=== PATIENT | female | born 1970 | race Caucasian/White ===

== ENCOUNTER → 2018-05-13 14:02 | Outpatient (CLI) | payer OTHER, SELFPAY ==
[2018-05-11 15:35] VITALS: BMI 19.6
--- NOTE | 2018-05-13 14:05 | BI_ITS ---
MAMMOGRAPHY - BILATERAL SCREENING REASON FOR EXAM: Female, 47 years old. Routine annual screening examination. PERTINENT HISTORY: Grandmother with breast cancer. TECHNIQUE: Digital bilateral breast josh (3D mammographic acquisition) in the CC and MLO projections. 2-D mediolateral oblique (MLO) and craniocaudad (CC) views of both breasts were obtained. CAD: Full Field Digital Mammography with Computer Added Detection was performed. COMPARISON: Comparison is made with prior outside examination dated June 12, 2016. FINDINGS: Breast Composition: The breasts are heterogeneously dense, which may obscure small masses. There are no dominant masses or suspicious calcifications. No other significant abnormalities are identified. There has been no significant change since the prior study. BI/SCREENING MAMM (CAD), BILAT IMPRESSION: Stable bilateral screening mammogram. Yearly follow-up mammogram recommended. (A) ASSESSMENT CATEGORY: BIRADS Category 1: Negative. A letter regarding these results will be sent to the patient by the facility within 30 days. Approximately 10% of breast cancers are not detected by mammography. A normal mammogram should not delay biopsy of a clinically suspicious abnormality. [id number] Electronically Signed: Gilbert Chang MD at 8:17 EST Tel [phone], Service support ,
--- OUTSIDE RECORDS SUMMARY | 2018-06-29 10:49 | XMS RPT_ITS ---
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, left knee DR Michelle / M2242(ICD-10) Hospital Repository 01/08/2018 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, left knee DR Michelle / M2242(ICD-10) Hospital Repository PROCEDURES PROCEDURES No Procedure Records FoundRESULTS RESULTS SCREENING MAMM (CAD), Observed: 05/13/2018 Status: F Source: DRE BILAT 2:05 PM [facility] REPOSITORY [facility] Imaging Services [address] [place] [address] SCREENING MAMM (CAD), BILAT MR#: [id number] Acct: [id number] Name: RUPINDER CLARKE Rep #: [id number] : 1970 F 47 From: Gilbert Chang MD PCP: Care Physician, No Primary Status: REG CLI Study: SCREENING MAMM (CAD), BILAT Date of Exam: 05/13/18 Exam# [id number] Ordering Dr: Morenita Tyler MD MAMMOGRAPHY - BILATERAL SCREENING REASON FOR EXAM: Female, 47 years old. Routine annual screening examination. PERTINENT HISTORY: Grandmother with breast cancer. TECHNIQUE: Digital bilateral breast josh (3D mammographic acquisition) in the CC and MLO projections. 2-D mediolateral oblique (MLO) and craniocaudad (CC) views of both breasts were obtained. CAD: Full Field Digital Mammography with Computer Added Detection was performed. COMPARISON: Comparison is made with prior outside examination dated June 12, 2016. FINDINGS: Breast Composition: The breasts are heterogeneously dense, which may obscure small masses. There are no dominant masses or suspicious calcifications. No other significant abnormalities are identified. There has been no significant change since the prior study. BI/SCREENING MAMM (CAD), BILAT IMPRESSION: Stable bilateral screening mammogram. Yearly follow-up mammogram recommended. (A) ASSESSMENT CATEGORY: BIRADS Category 1: Negative. A letter regarding these results will be sent to the patient by the facility within 30 days. Approximately 10% of breast cancers are not detected by mammography. A normal mammogram should not delay biopsy of a clinically suspicious abnormality. 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 Is patient in pain?: No Allergies aspirin Allergy (Mild, Verified 05/11/18 15:36) Unknown Medications NK 05/11/18 [History Confirmed 05/11/18] Is last menstrual period known: No Post menopausal: No Patient : No : No [facility] Medical History Anxiety (Acute) Surgical History delivery delivered (Acute) Social History Smoking Status: Never smoker alcohol intake: never substance use type: does not use caffeine: No what type of physical activity do you participate in: walking seatbelt use: always do you feel safe at home: Yes additional social history: Brian- [employer] for [employer] Patient does not work Pregancy History 2 Elective abortions Hx Para 2 Spontaneous abortions Past Pregnancies Del. DateName GA/Weeks Outcome Route Bth WeighInfant GeLabor LgtAnesthesiDel LocatProvider FOB t n h a n HPI ANNUAL: Details: RUPINDER CLARKE is a 47 year old who presents for annual exam. Denies concerns. , denies STD concerns. with vasectomy. Last PAP: 2017 at [facility] History of abnormal PAP: no Last mammogram: 2 years approx History of abnormal mammogram: no Female Reproductive History Cycle Length: 21-35 Questions: Metorrhagia: No, Sexually active: Yes, Dyspareunia: No, PCB: No ROS Const Constitutional: Denies fatigue, weight gain or weight loss Cardio Card: Denies chest pain Resp Resp: Denies cough or shortness of breath with activity GI GI: Denies abdominal pain, constipation, change in stools, vomiting or bloating : Reports as per HPI; denies urinary frequency, pelvic pain, urinary urgency, vaginal discharge, vaginal itching, urinary incontinence or difficulty urinating Exam Const General: cooperative, healthy appearing, no acute distress, well developed Orientation: alert, oriented to person, oriented to place HENNC Head: normal to inspection Neck Neck: normal visual inspection Thyroid: thyroid normal Lymphatic: no lymphadenopathy noted Chest Breast inspection: normal inspection of the breasts, normal inspection of the axillae Breast palpation: normal palpation of the breasts, normal palpation of the axillae, no axillary lymphadenopathy Resp Effort AND Inspection: normal respiratory effort GI Palpation: soft, nontender, no masses Rectal Exam: deferred External Female Exam: normal external appearance, normal appearance of the urethra Urethra: normal appearance of the urethra, normal palpation Speculum Exam - Vagina: normal appearance of the vagina, normal vaginal discharge Speculum Exam - Cervix: normal appearance of the cervix Bimanual Exam- Vagina AND Uterus: normal bimanual exam, uterine size normal, uterine shape normal, uterus non-tender Bimanual Exam- Adnexa, other: normal adnexae, no adnexal masses, adnexae non-tender, pelvic support normal Pelvic Support: normal Neuro General: alert, oriented x3 Psych Affect: normal affect Assessment AND Plan Problems 1. Encounter for gynecological examination without abnormal finding Z01.419 Plan - SANT[place] Completed breast and pelvic exam Reviewed diet and exercise Pap 2016 Mammogram scheduled Contraception vasectomy RTO 1 year, prn with problems Gloria Nolan BEAUTY OPERATOR Coding Level of Care Code Off vis,est,prev 40-64yrs Diagnoses Encounter for gynecological examination without abnormal finding Z01.419 Gynecological examination findings: abnormal findings ABSENT 05/12/18 0115 <Electronically signed by Morenita Tyler MD> Date Morenita Tyler MD 05/11/18 1624<Electronically signed by Gloria ONEALC> Cosigner Signature: Date (if applicable) Gloria Nolan CC: ALLERGIES ALLERGIES DATE TYPE / CODE NAME / CODE REACTION SEVERITY SOURCE 05/11/2018 Drug aspirin/F006 Unknown [place] [facility] Allergy/4160 120497([facility] [address](SNOMED M) Repository CT) ENCOUNTERS ENCOUNTERS ADMIT/DISCHARGE ACCOUNT ADMITTING ENCOUNTER LOCATION SOURCE NUMBER CLASS 05/13/2018 [id number] Ambulatory Dre [place] 0 [facility] Hospital ing:OPBI Repository 05/11/2018/ [id number] Ambulatory BMSBuilding:B [facility] Repository 01/08/2018/ [id number] BRENNER, Ambulatory Arnav Pomneel 8 [facility] Repository PAYERS PAYERS ENCOUNTER GUARANTOR PAYER SUBSCRIBER SOURCE 05/13/2018 RUPINDER A Primary Adriana T [place] [id number] Insurance:AULTCAREPol SiglerDOB: [facility] ic Number: [id number] [id number] [place]ository [place] [address]Kfo: Date:[id number] [address] [place] [address] ) [id number]: 05/13/2018 Secondary NOT GIVENUNK Dre Insurance:SELF PAY [facility] Number: Effective Repository Date:2018-02-10 05/11/2018 RUPINDER A Primary Adriana T Dre [id number] Insurance:AULTCAREPol SiglerDOB: [facility] ic Number: [id number] [id number] Repository [place] [address]Nlg: Date:[id number], [place] ) [id number]: 05/11/2018 Secondary NOT GIVENUNK [place] Insurance:SELF PAY [facility] Number: Effective Repository Date:2018-04-09 01/08/2018 RUPINDER Primary ADRIANA Lubin SIGLERDOB: Insurance:AULTCARE SIGLERDOB: [facility] [id number] [address] [facility] [id number] [place] [address] Number: E [place]ository [place] [id number]: [id number] [facility] Date:Plan Name:[address] [place] [id number] ()
== END ==
PROVIDERS: Visit Provider Obstetrics & Gynecology
DX: Z12.31 Encounter for screening mammogram for malignant neoplasm of breast (principal); Z80.3 Family history of malignant neoplasm of breast
CPT/HCPCS: 77063; 77067

== ENCOUNTER → 2019-05-12 17:30 | Outpatient (CLI) | payer OTHER, SELFPAY ==
--- NOTE | 2019-05-12 | ECC_PTH ---
PATIENT: RUPINDER CLARKE LOC: [facility] U#:[id number] AGE/SX: 54/F ROOM: RE05/12/[address]: Dr. Morenita Tyler MD : 1970 BED: DIS: SPEC #: [id number] RECD: 05/12/19 17:33 STATUS: TYLER EZE #: [id number] CANDIE: 05/12/19 00:[address]: Morenita Tyler DEPT: SURGICAL PATHOLOGY RECD BY: Mine Capps ENTERED: 05/13/19 09:08 SP TYPE: ECC GLADIS DR: No Primary Care Phys Tissues: Endocervical Procedures: Surgery Specimen Level IV HEADER OPERATION: Polypectomy PRE-OP DIAGNOSIS: Endocervical polyp TISSUE SUBMITTED: Polyp MICROSCOPIC DIAGNOSIS Endocervical polyp, biopsy: Fragments of benign endocervical polyp, inflamed. AM:yony 05/16/19 MICROSCOPIC DESCRIPTION Slides are reviewed. GROSS DESCRIPTION Received is one container labeled with the patient's name and not further designated. The specimen consists of multiple irregular fragments of light to dark cox soft tissue that in aggregate measure 2.5 x 2 x 0.2 cm. The specimen is totally submitted in one cassette. / AM:yony 05/13/19 TC:1 CPT: 93374
[2019-05-12 14:55] VITALS: BMI 19.6
[2019-05-18 11:49] LABS: HPV APTIMA, High Risk Negative (Negative)
== END ==
PROVIDERS: Referring Provider Obstetrics & Gynecology; Visit Provider Obstetrics & Gynecology
DX: Z12.4 Encounter for screening for malignant neoplasm of cervix (principal); N84.1 Polyp of cervix uteri
CPT/HCPCS: 87624; 88175; 88305; G0145

== ENCOUNTER → 2019-05-18 14:07 | Outpatient (CLI) | payer OTHER, SELFPAY ==
[2018-05-11 15:35] VITALS: BMI 19.6
[2019-05-12 14:55] VITALS: BMI 19.6
--- NOTE | 2019-05-18 14:09 | BI_ITS ---
MAMMOGRAPHY - BILATERAL SCREENING REASON FOR EXAM: Female, 48 years old. Routine annual screening examination. PERTINENT HISTORY: Grandmother with breast cancer. TECHNIQUE: Digital bilateral breast raad (3D mammographic acquisition) in the CC and MLO projections. 2-D mediolateral oblique (MLO) and craniocaudad (CC) views of both breasts were obtained. CAD: Full Field Digital Mammography with Computer Added Detection was performed. COMPARISON: Comparison is made with prior examination dated May 13, 2018. FINDINGS: Breast Composition: The breasts are heterogeneously dense, which may obscure small masses. There are no dominant masses or suspicious calcifications. No other significant abnormalities are identified. There has been no significant change since the prior study. BI/SCREEN MAMM (CAD) W/RAAD BILAT IMPRESSION: Stable bilateral screening mammogram. Yearly follow-up mammogram recommended. (A) ASSESSMENT CATEGORY: BIRADS Category 1: Negative. A letter regarding these results will be sent to the patient by the facility within 30 days. Approximately 10% of breast cancers are not detected by mammography. A normal mammogram should not delay biopsy of a clinically suspicious abnormality. [id number] Electronically Signed: Gilbert Chang, at 15:19 EST , Service support ,
== END ==
PROVIDERS: Referring Provider Obstetrics & Gynecology; Visit Provider Obstetrics & Gynecology
DX: Z12.31 Encounter for screening mammogram for malignant neoplasm of breast (principal)
CPT/HCPCS: 77063; 77067

== ENCOUNTER → 2020-06-26 10:53 | Outpatient (CLI) | payer OTHER, SELFPAY ==
[2019-05-12 14:55] VITALS: BMI 19.6
[2020-05-21 15:22] VITALS: BMI 20.2
--- NOTE | 2020-06-26 | CER_PTH ---
PATIENT: RUPINDER CLARKE LOC: [facility] U#:[id number] AGE/SX: 54/F ROOM: RE06/26/[address]: Dr. Morenita Tyler MD : 1970 BED: DIS: SPEC #: [id number] RECD: 06/26/20 12:07 STATUS: TYLER EZE #: [id number] CANDIE: 06/26/20 00:[address]: Morenita Tyler DEPT: SURGICAL PATHOLOGY RECD BY: Hien Morrow ENTERED: 06/26/20 13:09 SP TYPE: CERV OTHR DR: No Primary Care Phys Tissues: Uterine cervix, NOS Procedures: Surgery Specimen Level IV HEADER OPERATION: Polyp removal PRE-OP DIAGNOSIS: Polyp TISSUE SUBMITTED: Polyp MICROSCOPIC DIAGNOSIS Polyp, not further specified, biopsy: Benign endocervical polyp, inflamed. AM:yony 06/27/2020 MICROSCOPIC DESCRIPTION Slides are reviewed. GROSS DESCRIPTION Received is one container labeled with the patient's name and not further designated. The specimen consists one irregular fragment of cox-pink mucoid tissue measuring 1 x 0.5 x 0.2 cm. The specimen is totally submitted in one cassette. / SANTI:yony 06/26/20 TC:5 CPT: 00493
--- NOTE | 2020-06-26 10:56 | BI_ITS ---
MAMMOGRAPHY - BILATERAL SCREENING REASON FOR EXAM: Female, 50 years old. Routine annual screening examination. PERTINENT HISTORY: Grandmother with breast cancer. TECHNIQUE: Digital bilateral breast raad (3D mammographic acquisition) in the CC and MLO projections. 2-D mediolateral oblique (MLO) and craniocaudad (CC) views of both breasts were obtained. CAD: Full Field Digital Mammography with Computer Added Detection was performed. COMPARISON: Comparison is made with prior study dated 05/18/2019 and 05/13/2018. FINDINGS: Breast Composition: The breasts are heterogeneously dense, which may obscure small masses. There are no dominant masses or suspicious calcifications. No other significant abnormalities are identified. There has been no significant change since the prior study. BI/SCRN MAMM (CAD)W/RAAD BILAT IMPRESSION: Stable bilateral screening mammogram. Yearly follow-up mammogram recommended. (A) ASSESSMENT CATEGORY: BIRADS Category 1: Negative. A letter regarding these results will be sent to the patient by the facility within 30 days. Approximately 10% of breast cancers are not detected by mammography. A normal mammogram should not delay biopsy of a clinically suspicious abnormality. [id number] Electronically Signed: Gilbert Chang MD at 12:13 EST , Service support ,
== END ==
PROVIDERS: Referring Provider Obstetrics & Gynecology; Visit Provider Obstetrics & Gynecology
DX: Z12.31 Encounter for screening mammogram for malignant neoplasm of breast (principal); N84.1 Polyp of cervix uteri; Z80.3 Family history of malignant neoplasm of breast
CPT/HCPCS: 77063; 77067; 88305

== ENCOUNTER → 2021-04-18 | Outpatient (CLI) | payer OTHER, SELFPAY ==
--- NOTE | 2021-04-18 14:00 | CER_PTH ---
PATIENT: RUPINDER CLARKE [id number] AGE/SX: 50/F ROOM: RE04/18/[address]: Dr. Morenita Tyler MD : 1970 BED: DIS: 04/18/2021 SPEC #: [id number] RECD: 04/18/21 16:24 STATUS: TYLER REAcosta #: [id number] CANDIE: 04/18/21 14:[address]: Morenita Tyler DEPT: SURGICAL PATHOLOGY RECD BY: Hien Morrow ENTERED: 04/19/21 10:58 SP TYPE: CERV OTHR DR: No Primary Care Phys Tissues: Uterine cervix, NOS Procedures: Surgery Specimen Level IV HEADER OPERATION: Cervical polypectomy PRE-OP DIAGNOSIS: Abnormal uterine bleeding / cervical polyp TISSUE SUBMITTED: Cervical polyp MICROSCOPIC DIAGNOSIS Cervical polyp, polypectomy: Benign endocervical polyp. Fragments of benign endocervical epithelium, blood and mucous. AM:yony 04/22/2021 MICROSCOPIC DESCRIPTION Slides are reviewed. GROSS DESCRIPTION Received is one container labeled with the patient's name and not further designated. The specimen consists of multiple irregular fragments of light cox soft tissue that in aggregate measure 2.5 x 1.5 x 0.2 cm. The specimen is totally submitted in one cassette. / AM:yony 04/19/21 TC:5 CPT: 02206
== END | disposition home or self-care (01) ==
LOC: LABSPEC 16:39
PROVIDERS: Visit Provider Obstetrics & Gynecology
DX: N93.9 Abnormal uterine and vaginal bleeding, unspecified (principal); N84.1 Polyp of cervix uteri
CPT/HCPCS: 88305

== ENCOUNTER 2021-06-27 11:01 | Outpatient (CLI) | payer OTHER, SELFPAY ==
[2020-06-26 11:16] VITALS: BMI 20.3
--- NOTE | 2021-06-27 11:04 | BI_ITS ---
MAMMOGRAPHY - BILATERAL SCREENING REASON FOR EXAM: Female, 51 years old. Routine annual screening examination. PERTINENT HISTORY: Grandmother with breast cancer. TECHNIQUE: Digital bilateral breast raad (3D mammographic acquisition) in the CC and MLO projections. 2-D mediolateral oblique (MLO) and craniocaudad (CC) views of both breasts were obtained. CAD: Full Field Digital Mammography with Computer Added Detection was performed. COMPARISON: Comparison is made with prior study dated 06/26/2020 and 05/18/2019. FINDINGS: Breast Composition: There are scattered areas of fibroglandular density. There are no dominant masses or suspicious calcifications. No other significant abnormalities are identified. There has been no significant change since the prior study. BI/SCRN MAMM (CAD)W/RAAD BILAT IMPRESSION: Stable bilateral screening mammogram. Yearly follow-up mammogram recommended. (A) ASSESSMENT CATEGORY: BIRADS Category 1: Negative. A letter regarding these results will be sent to the patient by the facility within 30 days. Approximately 10% of breast cancers are not detected by mammography. A normal mammogram should not delay biopsy of a clinically suspicious abnormality. [id number] Electronically Signed: Gilbert Chang MD at 12:00 EST ,
== END 2021-06-27 23:59 | disposition short-term general hospital (02) ==
LOC: OPBI 11:02
PROVIDERS: Referring Provider Obstetrics & Gynecology; Visit Provider Obstetrics & Gynecology
DX: Z12.31 Encounter for screening mammogram for malignant neoplasm of breast (principal)
CPT/HCPCS: 77063; 77067

== ENCOUNTER → 2022-07-03 | Outpatient (CLI) | payer OTHER, SELFPAY ==
--- NOTE | 2022-07-03 14:31 | BI_ITS ---
MAMMOGRAPHY - BILATERAL SCREENING REASON FOR EXAM: Female, 52 years old. Routine annual screening examination. PERTINENT HISTORY: Grandmother with breast cancer. TECHNIQUE: Digital bilateral breast raad (3D mammographic acquisition) in the CC and MLO projections. 2-D mediolateral oblique (MLO) and craniocaudad (CC) views of both breasts were obtained. CAD: Full Field Digital Mammography with Computer Added Detection was performed. COMPARISON: Comparison is made with prior study dated 06/27/2021 and 06/26/2020. FINDINGS: Breast Composition: The breasts are heterogeneously dense, which may obscure small masses. There are no dominant masses or suspicious calcifications. No other significant abnormalities are identified. There has been no significant change since the prior study. BI/SCRN MAMM (CAD)W/RAAD BILAT IMPRESSION: Stable bilateral screening mammogram. Yearly follow-up mammogram recommended. (A) ASSESSMENT CATEGORY: BIRADS Category 1: Negative. A letter regarding these results will be sent to the patient by the facility within 30 days. Approximately 10% of breast cancers are not detected by mammography. A normal mammogram should not delay biopsy of a clinically suspicious abnormality. [id number] Electronically Signed: Gilbert Chang MD at 15:33 EST ,
== END | disposition home or self-care (01) ==
LOC: OPBI 14:29
PROVIDERS: PCP Internal Medicine Infectious Disease; Visit Provider Obstetrics & Gynecology
DX: Z12.31 Encounter for screening mammogram for malignant neoplasm of breast (principal)
CPT/HCPCS: 77063; 77067

== ENCOUNTER → 2023-07-06 | Outpatient (CLI) | payer OTHER, SELFPAY ==
--- NOTE | 2023-07-06 13:51 | BI_ITS ---
MAMMOGRAPHY - BILATERAL SCREENING REASON FOR EXAM: Female, 53 years old. Routine annual screening examination. PERTINENT HISTORY: Grandmother with breast cancer. Aunt with breast cancer. TECHNIQUE: Digital bilateral breast raad (3D mammographic acquisition) in the CC and MLO projections. 2-D mediolateral oblique (MLO) and craniocaudad (CC) views of both breasts were obtained. CAD: Full Field Digital Mammography with Computer Added Detection was performed. COMPARISON: Comparison is made with prior study dated July 03, 2022 and June 27, 2021. FINDINGS: Breast Composition: The breasts are heterogeneously dense, which may obscure small masses. There are no dominant masses or suspicious calcifications. No other significant abnormalities are identified. There has been no significant change since the prior study. BI/SCRN MAMM (CAD)W/RAAD BILAT IMPRESSION: Stable bilateral screening mammogram. Yearly follow-up mammogram recommended. (A) ASSESSMENT CATEGORY: BIRADS Category 1: Negative. A letter regarding these results will be sent to the patient by the facility within 30 days. Approximately 10% of breast cancers are not detected by mammography. A normal mammogram should not delay biopsy of a clinically suspicious abnormality. [id number] Electronically Signed: Gilbert Chang MD at 14:32 EST ,
[2023-07-09 12:09] LABS: HPV APTIMA, High Risk Negative (Negative)
== END | disposition home or self-care (01) ==
PROVIDERS: PCP Internal Medicine Infectious Disease; Referring Provider Obstetrics & Gynecology; Visit Provider Obstetrics & Gynecology
DX: Z12.31 Encounter for screening mammogram for malignant neoplasm of breast (principal); Z12.4 Encounter for screening for malignant neoplasm of cervix
CPT/HCPCS: 77063; 77067; 87624; 88175; G0145

== ENCOUNTER → 2023-08-01 | Outpatient (CLI) | payer OTHER, SELFPAY ==
[2023-08-01 12:19] LABS: Estradiol 16.9 pg/mL
== END | disposition home or self-care (01) ==
LOC: LAB 11:28
PROVIDERS: PCP Internal Medicine Infectious Disease; Referring Provider Obstetrics & Gynecology; Visit Provider Obstetrics & Gynecology
DX: N95.1 Menopausal and female climacteric states (principal)
CPT/HCPCS: 36415; 82670; 83001

== ENCOUNTER 2024-01-06 14:48 | Emergency (ER) | payer OTHER, SELFPAY ==
[2024-01-06 14:49] VITALS: BP 109/77; PULSE 121; RESP 16; TEMP 35.8; O2SAT 97; BMI 22.4
--- NOTE | 2024-01-06 15:25 | EDS_ITS ---
HPI History of Present Illness Chief Complaint: Palpitations [facility] Medical History Cervical polyp Anxiety Home Medications ?Medication ?Instructions ?Recorded ?Last Taken ?Type potassium chloride 10 mEq 50 meq PO DAILY 07/10/23 Unknown History capsule,extended release valacyclovir 500 mg tablet 500 mg PO DAILY #90 tabs 07/10/23 Unknown Rx (Valtrex) estradiol 0.01% (0.1 mg/gram) 1 appful vaginal DAILY #42.5 grams 11/25/23 Unknown Rx vaginal cream Allergy/AdvReac Type Severity Reaction Status Date / Time aspirin Allergy Mild Unknown Verified 01/06/24 14:49 Surgical History delivery delivered Social History Smoking Status: Never smoker alcohol intake: never substance use type: does not use caffeine: No what type of physical activity do you participate in: walking seatbelt use: always do you feel safe at home: Yes additional social history: Brian- [employer] Patient does not work EXAM Physical Exam Const Vital Signs: 01/06/24 14:49 01/06/24 17:10 Temperature 96.5 F L Temperature Source Temporal Pulse Rate 121 H 83 Respiratory Rate 16 24 H Blood Pressure 109/77 103/62 Blood Pressure Mean 87 75 Pulse Ox 97 100 Oxygen Delivery Method Room Air Room Air MDM MDM MDM Narrative Medical decision making narrative: HISTORY OF PRESENT ILLNESS: P3-year-old female presents with palpitations. Started at 10 AM. Notes having the past. Usually goes away on its ow. She notes she takes potassium supplementation. Patient denies recent surgery in the last 4 weeks or immobilization in the last 3 days, denies previous diagnosis of DVT or PE, hemoptysis, unilateral leg swelling or malignancy with treatment the last 6 months or palliative. No estrogen use noted. No chest pain no shortness of breath. She denies any black or tarry stools. Any other bleeding diathesis. Any vomiting or diarrhea. Denies chest pain. No shortness of breath. No family or personal history of abnormal heart rhythms. REVIEW OF SYSTEMS: Pertinent positives: palpitations Pertinent negatives: Chest pain, shortness of breath, leg swelling, fever, cough PHYSICAL EXAM: Nursing triage notes reviewed, Vital signs reviewed Constitutional: please see [facility] HENT: MMM Eyes: Pupils equal round and reactive to light, Extraocular muscles intact Neck: No stridor, no JVD, full neck ROM Lungs: Clear to auscultation, No wheezing or rales. No increased work of breathing, no conversational dyspnea, no accessory muscle use, no nasal flaring. No respiratory distress noted Heart: Regular rate and rhythm, No murmurs, No rubs and No gallops, 2+ distal pulses (radial, femoral, posterior tibial) in all extremities Abdomen: Soft, there is no tenderness, rigidity, rebound or guarding, no obvious peritoneal signs, no palpable pulsatile abdominal masses, no auscultated ab dominal bruit : No CVAT Extremities: No edema Neuro: No focal neurological deficits, cranial nerves II through XII intact, 5/5 strength in all extremities. Intact sensation to light touch in all extremities, 2+ reflexes bilateral patella tendons. Normal gait. No ataxia. Skin: No rash or lesions noted MEDICAL DECISION MAKING: Chief Complaint: Palpitations External records reviewed: No recent metabolic panels noted. No recent cardiac catheterizations, stress test or Holter monitor was noted in the chart Factors affecting care: none Social determinants of health: none History obtained from others: none Consults: none [facility] Narrative: The patient was initially tachycardic at a rate of 121, otherwise afebrile and nontoxic-appearing. Exam without focal cardiopulmonary maladies. No stigmata of CHF, VTE or anemia. I considered the following differential diagnosis: Arrhythmia, anemia, dehydration, pneumonia, electrolyte disturbance, ACS, heart failure, thyroid dysfunction I obtained a broad lab and imaging workup to further elucidate the etiology of the patient complaint. Specifically ruling out signs of after mentioned diagnoses. Gave 1 L normal saline for fluid resuscitation. ALL IMAGES (IF OBTAINED) HAVE BEEN PERSONALLY REVIEWED AND INTERPRETED BY MYSELF. EKG with sinus tachycardia rate 124, normal axis, normal intervals, occasional PVCs, no STEMI, no prior for comparison High-sensitivity troponin is negative, no evidence of myocardial ischemia TSH within normal limits BNP within normal limit suggestive of no heart failure CBC without leukocytosis, severe anemia, no thrombocytopenia. BMP without evidence of significant electrolyte abnormalities, no anion gap, no acute kidney injury The synthesis of the patient's history, physical exam, labs and images suggest no acute life or limb technology. Upon reassessment patient's heart rate improved to 83. She is appropriate for discharge home. No clear etiology to be ascertained. Encouraged outpatient follow-up for Holter monitoring. The patient and/or family, caregivers express understanding. The patient and/or family, caregivers agrees with the plan. Shared decision making: I will have a discussion with the patient and or visitors regarding risk/benefits of further testing or admission. They will be made aware of of the risk/benefits inherent in this decision they will be given the opportunity to voice understanding. Total critical care time today provided was at least 0 minutes. This excludes separately billable procedures. Critical care time (if documented) is secondary to the patient having high probability of clinically significant/life threatening deterioration in the patient's condition which required my urgent intervention. Impression: 1. Palpitations 2. Tachycardia Dispo: Discharge home This note was generated with [employer] dictation software. It may contain incorrect words, spelling, and punctuation that were not noted in review of the chart prior to signing. Lab Data Labs: Laboratory Results - last 24 hr 01/06/24 15:11 WBC 7.9 RBC 4.71 Hgb 14.4 Hct 43.4 MCV 92.1 MCH 30.6 MCHC 33.2 RDW Std Deviation 40.6 RDW Coeff of [place] 12.1 Plt Count 319 MPV 10.1 Immature Gran % (Auto) 0.100 Neut % (Auto) 58.0 Lymph % (Auto) 32.2 [place] % (Auto) 7.3 Eos % (Auto) 1.8 Baso % (Auto) 0.6 Absolute Neuts (auto) 4.6 Absolute Lymphs (auto) 2.55 Nucleated RBC % 0 Sodium 141 Potassium 3.6 Chloride 105 Carbon Dioxide 30.0 Anion Gap 6 BUN 11 Creatinine 0.72 Estim Creat Clear Calc 74.75 Est GFR (MDRD) Af Amer 108 Est GFR (MDRD) Non-Af 89 BUN/Creatinine Ratio 15.2 Glucose 96 Calcium 9.9 Troponin I High Sens < 3 L B-Natriuretic Peptide 16.2 TSH 0.83 Radiography Diagnostic Testing: Clinical Impression(s) from Imaging Studies Chest X-Ray 01/06/24 16:10 IMPRESSION: No acute radiographic abnormalities. Electronically Signed: Sohail Romeo MD at 16:40 EDT , Discharge Plan Triage Chief Complaint: Palpitations ED Provider: Brad Hernandez Dx/Rx/DC Orders Prescriptions: No Action estradiol 0.01 % (0.1 mg/gram) cream 1 appful vaginal DAILY Qty: 42.5 1RF Rx Instructions: pea sized amount to finger tip method every night x 2 weeks then 3 times a week thereafter. potassium chloride 10 mEq capsule, extended release 50 meq PO DAILY valacyclovir [Valtrex] 500 mg tablet 500 mg PO DAILY Qty: 90 4RF Primary Care Provider: Xuan Rucker Referrals: Xuan Rucker MD [Primary Care Provider] - Print Language: Lebanese
--- NOTE | 2024-01-06 16:06 | EKG12_ITS ---
Test Reason : TACHYCARDIA Blood Pressure : / mmHG Vent. Rate : 124 BPM Atrial Rate : 124 BPM P-R Int : 134 ms QRS Dur : 078 ms QT Int : 322 ms P-R-T Axes : 070 077 062 degrees QTc Int : 462 ms Sinus tachycardia with occasional Premature ventricular complexes Nonspecific ST abnormality Abnormal ECG Confirmed by TETE VITAL, BRIA ([id number]), communications editor ARNAUD BAINS ([id number]) on 01/11/2024 8:42:03 AM Referred By: Confirmed By:BRI EPSTEIN MD
--- NOTE | 2024-01-06 16:10 | RAD_ITS ---
INDICATION: palpitations EXAMINATION/TECHNIQUE: X-RAY - XR Chest 1 View COMPARISON: None. FINDINGS: The lungs are clear. The cardiomediastinal silhouette is unremarkable. No pleural effusion or pneumothorax. Degenerative changes of the thoracic spine. RAD/Chest 1 View (Portable) IMPRESSION: No acute radiographic abnormalities. Electronically Signed: Sohail Romeo MD at 16:40 EDT ,
[2024-01-06] MEDS: 0.9% Normal Saline (1000mL) 1,000 ML 1000 ML IV (16:11)
--- NOTE | 2024-01-06 16:15 | NURSING ---
NO OLD EKGS
[2024-01-06 16:19] LABS: Absolute Lymphocyte Count 2.55 X10^3/uL (0.83-4.51); Absolute Neutrophil Count 4.6 X10^3/uL (2.0-7.7); Basophil# 0.05 X10^3/uL; Basophil% 0.6 % (0-1); Eosinophil# 0.14 X10^3/uL; Eosinophils% 1.8 % (0-5); Hematocrit 43.4 % (37-47); Hemoglobin 14.4 g/dL (12.0-15.0); Lymphocyte # 2.55 X10^3/ul (0.83-4.51); Lymphocyte % 32.2 % (19-41); Mean Corp Hgb Conc 33.2 g/dL (32-36); Mean Corpuscular Hgb 30.6 pg (27.0-32.0); Mean Corpuscular Volume 92.1 fL (81-99); Mean Platelet Vol. 10.1 fl (6.2-12.0); Monocyte# 0.58 X10^3/uL; Monocyte% 7.3 % (0-10); NRBC Flagged by Analyzer 0 % (0-5); Neutrophil # 4.59 X10^3/uL (2.7-7.7); Platelet Count 319 K/mm3 (150-450); RBC Distribution Width CV 12.1 % (11.6-14.6); RBC Distribution Width SD 40.6 fl (35.1-43.9); Red Blood Count 4.71 M/mm3 (4.2-5.4); White Blood Count 7.9 K/mm3 (4.4-11.0)
[2024-01-06 16:37] LABS: Anion Gap 6 (5-15); BUN 11 mg/dL (7-18); BUN/Creat Ratio 15.2 RATIO (10-20); Calcium,Total 9.9 mg/dL (8.5-10.1); Chloride 105 mmol/L (98-107); Creatinine, Serum 0.72 mg/dL (0.55-1.02); EST Glomerular Filtration Rate 89 mL/min (>60); Est Glom Filt Rate - Afr Amer 108 mL/min (>60); Estimated Creatinine Clearance 74.75 ml/min; Glucose 96 mg/dL (74-106); Potassium 3.6 mmol/L (3.5-5.1); Sodium Level 141 mmol/L (136-145); Thyroid Stim Hormone (TSH) 0.83 uIU/mL (0.358-3.74); Troponin-I HS < 3 pg/mL (3.0-54.0)
[2024-01-06 16:50] LABS: BNP,B-Type NATRIURETIC PEPTIDE 16.2 pg/mL (0-100)
[2024-01-06 17:10] VITALS: BP 103/62; PULSE 83; RESP 24; O2SAT 100
[2024-01-06 17:30] VITALS: BP 108/71; PULSE 89; RESP 16; TEMP 36.4; O2SAT 99
== END 2024-01-06 17:33 | disposition home or self-care (01) ==
PROVIDERS: Emergency Provider Emergency Medicine; PCP Internal Medicine Infectious Disease; Visit Provider Emergency Medicine
DX: R00.2 Palpitations (principal); R00.0 Tachycardia, unspecified
CPT/HCPCS: 71045; 80048; 83880; 84443; 84484; 85025; 93005; 96360; 99284; J7030; A4216

== ENCOUNTER → 2024-07-11 | Outpatient (CLI) | payer OTHER, SELFPAY ==
--- NOTE | 2024-07-11 13:34 | BI_ITS ---
PROCEDURE: SCRN MAMM (CAD)W/RAAD BILAT REASON FOR EXAM: F, Age 54 y/o, presents for annual screening mammogram. Family history of breast cancer in maternal grandmother and maternal great aunt in their 80s. TECHNIQUE: Bilateral screening digital breast tomosynthesis with 2D and 3D images. Computer aided detection. COMPARISON: 07/06/2023 FINDINGS: There are scattered areas of fibroglandular density. No suspicious masses, areas of developing architectural distortion, or suspicious calcifications. BI/SCRN MAMM (CAD)W/RAAD BILAT IMPRESSION: There is no mammographic evidence of malignancy in either breast. BI-RADS 1: NEGATIVE. RECOMMEND ANNUAL MAMMOGRAPHIC SCREENING. Follow-up code: Routine Follow-up. The patient will be notified of the results by letter. Reading Location: [id number]
== END | disposition home or self-care (01) ==
LOC: OPBI 13:33
PROVIDERS: PCP Internal Medicine Infectious Disease; Referring Provider Obstetrics & Gynecology; Visit Provider Obstetrics & Gynecology
DX: Z12.31 Encounter for screening mammogram for malignant neoplasm of breast (principal); Z80.3 Family history of malignant neoplasm of breast
CPT/HCPCS: 77063; 77067